=== PATIENT | female | born 1985 | race Caucasian/White ===

== ENCOUNTER 2023-06-01 09:24 | Emergency (ER) | payer SELFPAY ==
[2023-06-01 09:24] VITALS: BP 133/75; PULSE 73; RESP 20; TEMP 36.3; O2SAT 100; BMI 38.0
--- NOTE | 2023-06-01 09:54 | EX.ED.DYSGE1 ---
HPI History of Present Illness Chief Complaint: Wound Informant: patient Narrative Narrative: 37-year-old female presenting to the emergency room for painful red lump on her chest. Patient states for months she has had a small rubbery knot on her anterior chest wall. Over the past few days its become swollen red and painful. She has not had this before. She denies a history of MRSA infections but does note that she has boils that occasionally come up and drain on their own. She has never required incision and drainage. PFSH PFSH Medical History no medical history Home Medications sulfamethoxazole 800 mg-trimethoprim 160 mg tablet (Bactrim DS) 1 tab PO DAILY 7 days #7 tabs 06/01/23 [Rx Last Taken Unknown] Allergy/AdvReac Type Severity Reaction Status Date / Time No Known Allergies Allergy Verified 12/25/15 21:07 Surgical History no surgical history Social History Smoking Status: Current some day smoker tobacco type: cigarettes ROS ROS ED Constitutional Constitutional ED: Denies chills or weight loss Eyes Eyes: Denies change in vision or diplopia ENT ENT ED: Denies ear pain, rhinorrhea or sore throat Cardiovascular Cardiovascular: Denies chest pain, orthopnea, palpitations or racing heartbeat Respiratory/Chest Respiratory/Chest: Denies cough, dyspnea or orthopnea Gastrointestinal Gastrointestinal: Denies abdominal pain, diarrhea, nausea or vomiting Genitourinary Genitourinary ED: Denies dysuria, hematuria or urinary frequency Musculoskeletal Musculoskeletal: Denies arthralgias or myalgias Integumentary Reports abscess; Denies rash Neurologic Neurologic: Denies headache(s) or weakness Psychiatric Psychiatric: Denies anxiety, depression, suicidal ideation or suicidal thoughts Endocrine Endocrinology: Denies polydipsia, polyphagia or polyuria Allergic/Immunologic Allergic/Immunologic ED: Denies mouth swelling, tongue swelling or urticaria EXAM Physical Exam Const Vital Signs: 06/01/23 09:24 Temperature 97.3 F L Temperature Source Temporal Pulse Rate 73 Respiratory Rate 20 H Blood Pressure 133/75 H Blood Pressure Mean 94 Pulse Ox 100 Oxygen Delivery Method Room Air Positive well nourished, well developed and obese General Appearance ED: well developed Nutritional Appearance: obese HEENT Reports normocephalic, head/scalp atraumatic and moist mucous membranes Eyes PERRL and EOMs intact bilaterally Neck no lymphadenopathy, supple and no JVD Chest Wall Chest Narrative: Anterior chest wall demonstrates a 2 cm round fluctuant abscess. There is mild surrounding erythema. This is tender to palpation. Resp normal respiratory effort and clear to auscultation bilaterally Cardio regular rate, regular rhythm and no murmurs GI normal to inspection, nondistended, normoactive bowel sounds and non-tender Palpation: soft Back/Spine no CVA tenderness and normal ROM Extremity normal to inspection General Extremety ED: Negative for edema General Extremity: Negative for edema Neuro oriented x3 and CN's II-XII intact bilaterally Sensorium / Orientation: alert Motor Exam: strength 5/5 throughout Psych mental status grossly normal Mood & Affect: Negative for depressed or tearful Skin no rashes or lesions noted and no wounds MDM MDM MDM Narrative Medical decision making narrative: Procedure was performed with female nurse (Aylin) skin was washed with Betadine and allowed to dry. Local lidocaine was used to anesthetize the skin. An 11 blade was used to make an incision. Thick cottage cheeselike substance was expressed as well as some liquid pus. This was sent for culture. Some of the apparent cyst wall was able to be removed. Nature of the cyst were discussed with the patient. Because the patient has a history of cyst and draining and the surrounding erythema she will be placed on Bactrim. Packing was placed and patient was instructed to remove this in 3 days while in the shower. Follow-up as needed return if worsening or concerns Discharge Plan Triage Chief Complaint: Wound ED Provider: Steven Pearce Dx/Rx/DC Orders Clinical Impression: Infected sebaceous cyst of skin Instructions: Epidermoid Cyst Infect Antibiotics Prescriptions: New sulfamethoxazole-trimethoprim [Bactrim DS] 800-160 mg tablet 1 tab PO DAILY 7 Days Qty: 7 0RF Primary Care Provider: Alhaji Akins Referrals: Alhaji Akins MD [Primary Care Provider] - 3-5 Days if not improving Disposition Disposition: Home, Self Care
[2023-06-01] MEDS: Lidocaine 1% (20 ml mdv) 20 ML Vial INFILT (10:12)
== END 2023-06-01 10:26 | disposition home or self-care (01) ==
LOC: ED 10:23
PROVIDERS: Emergency Provider Emergency Medicine; PCP Family Medicine; Visit Provider Emergency Medicine
DX: L72.3 Sebaceous cyst (principal); F17.210 Nicotine dependence, cigarettes, uncomplicated; E66.9 Obesity, unspecified
CPT/HCPCS: 10060; 87070; 87186; 87205; 99283